=== PATIENT | male | born 1955 | race Caucasian/White ===

== ENCOUNTER 2021-08-30 17:49 | Inpatient (IN) ==
[2021-08-30 18:53] LABS: APPEARANCE,URINE HAZY (CLEAR); BACTERIA,URINE 2+ /HPF (NEGATIVE); CALCIUM OXALATE CRYSTALS,UR FEW /HPF (NEGATIVE); COLOR,URINE ORANGE (YELLOW); HYALINE CASTS, URINE FEW /LPF (NEGATIVE); MUCUS,URINE FEW /HPF (NEGATIVE); SQUAMOUS EPITHELIAL CELL,UR FEW /HPF (NEGATIVE); TRANSITIONAL EPI CELLS,URINE FEW /HPF (NEGATIVE)
[2021-08-30] MEDS ORDERED: ROCEPHIN VIAL 1 GRAM 1 G in NS 100 ML IV + SPIKE MINIBAG* 100 ML IV ONE (19:15)
[2021-08-30] MEDS ORDERED: ROCEPHIN VIAL 1 GRAM ONE (19:36)
[2021-08-30] MEDS ORDERED: NS 100 ML IV + SPIKE MINIBAG* 100 ML IV ONE (19:36)
[2021-08-30] MEDS ORDERED: NS 1000 ML 1,000 ML ONE ×2 (19:37→21:11)
--- NOTE | 2021-08-30 19:38 | DR.UPM ---
HPI Time Seen Time Seen by Provider: 08/30/21 19:06 PCP Primary Care Physician: GREGORY PARSON Complaint Chief Complaint Doctors Comments: LOWER ABDOMINAL PAIN WITH DYSURIA, FEVER, NAUSEA AND URINARY URGENCY Chief Complaint:: PT C/O URINARY URGENCY SINCE WEDNESDAY ASSOCIATED WITH DYSURIA, NAUSEA, AND FEVER UP TO 101. Self Treatment fo Chief Complaint: TAKEN AZO AND ASPIRIN COVID-19 Coronavirus risk:travel/contact w/high risk person: No Has patient experienced Coronavirus symptoms: No Source History Provided: Patient Mode of Arrival Mode of Arrival: Ambulatory Timing Onset of Chief Complaint: 08/30/21 PMH PMH Past Medical History: Yes Past Medical History: Dyslipidemia and Hypertension Past Surgical History: Yes Surgical History: Cholecystectomy and Ortho Surgery Past Surgical History Comment: LAP BAND Family History History of Family Medical Conditions: Yes Family Medical History: OR and Coronary Artery Disease Social History Does patient currently use any type of tobacco product: No Have you used tobacco products in the last 12 months: No Type of Tobacco Use: None Does any household member use tobacco: No Alcohol Use: None Do you use any recreational Drugs:: No Lives With: Family Lives Where: Home Travel Risk Coronavirus risk:travel/contact w/high risk person: No Has patient experienced Coronavirus symptoms: No Infectious screening In the last 2 months have you had wt loss of >10#?: NO Have you had fever, night sweats or hemotysis?: No Have you traveled outside the country in the last 6 months?: No Isolation: Standard PE Vital Signs Vitals: Temperature 98.4 F Pulse Rate 92 Respiratory Rate 18 Blood Pressure [Left Arm] 128/72 Blood Pressure 113/67 O2 Sat by Pulse Oximetry 90 ROR Labs Reviewed Result Diagrams: 08/30/21 19:23 08/30/21 19:23 Laboratory: WBC 21.0 X10^3/uL (3.6-10.0) H 08/30/21 19:23 RBC 4.47 X10^6/uL (4.7-6.0) L 08/30/21 19:23 Hgb 13.2 g/dL (13.5-18.0) L 08/30/21 19:23 Hct 37.9 % (42.0-54.0) L 08/30/21 19:23 MCV 84.7 fL (80.0-100.0) 08/30/21 19:23 MCH 29.5 pg (27.0-34.0) 08/30/21 19: MCHC 34.8 g/dL (33.0-35.0) 08/30/21 19: RDW 14.4 % (11.6-16.5) 08/30/21 19: Plt Count 232 X10^3/uL (150.0-450.0) 08/30/21: MPV 8.2 fL (7.4-11.0) 08/30/21 19: Neut % (Auto) 83.9 % (42.0-75.0) H 08/30/21: Lymph % (Auto) 4.5 % (21.0-51.0) L 08/30/21: [place] % (Auto) 11.4 % (0.0-13.0) 08/30/21 19: Eos % (Auto) 0.0 % (0.9-2.9) L 08/30/21: Baso % (Auto) 0.2 % (0.2-1.0) 08/30/21: Neut # (Auto) 17.6 x10^3/uL (2.2-4.8) H 08/30/21 19: Lymph # (Auto) 1.0 X10^3/uL (1.3-2.9) L 08/30/21 19: [place] # (Auto) 2.4 x10^3/uL (0.3-0.8) H 08/30/21 19: Eos # (Auto) 0.0 x10^3/uL (0.0-0.2) 08/30/21: Baso # (Auto) 0.0 X10^3/uL (0.0-0.1) 08/30/21: Absolute Nucleated RBC 0.0 /100WBC 08/30/21 19: Sodium 132 mmol/L (136-145) L 08/30/21: Corrected Sodium 133 mmol/L (136-145) L 08/30/21 19: Potassium 3.6 mmol/L (3.5-5.1) 08/30/21: Chloride 96 mmol/L (98-107) L 08/30/21 19:23 Carbon Dioxide 25.0 mmol/L (21-32) 08/30/21 19:23 BUN 24 mg/dL (7-18) H 08/30/21 19:23 Creatinine 2.22 mg/dL (0.70-1.30) H 08/30/21 19:23 Est GFR (MDRD) Af Amer 39 (>60) L 08/30/21 19:23 Est GFR (MDRD) Non-Af 32 (>60) L 08/30/21 19:23 Glucose 139 mg/dL (65-99) H 08/30/21 19:23 Calcium 8.6 mg/dL (8.5-10.1) 08/30/21 19:23 Corrected Calcium 9.2 mg/dL (8.5-10.1) 08/30/21 19:23 Total Bilirubin 0.80 mg/dL (0.2-1.0) 08/30/21 19:23 AST 18 Units/L (15-37) 08/30/21 19:23 ALT 24 Units/L (12-78) 08/30/21 19:23 Alkaline Phosphatase 52 Units/L (46-116) 08/30/21 19:23 Total Protein 7.6 g/dL (6.4-8.2) 08/30/21 19:23 Albumin 3.3 g/dL (3.4-5.0) L 08/30/21 19:23 Globulin 4.3 g/dL (2.5-4.5) 08/30/21 19:23 Albumin/Globulin Ratio 0.8 Ratio (1.1-2.1) L 08/30/21 19:23 Specimen Type Clean catch urine 08/30/21 18:21 Urine Color [place] (YELLOW) 08/30/21 18:21 Urine Appearance Hazy (CLEAR) 08/30/21 18:21 Urine pH Cancelled 08/30/21 18:21 Ur Specific [place] Cancelled 08/30/21 18:21 Urine Protein Cancelled 08/30/21 18:21 Urine Glucose (UA) Cancelled 08/30/21 18:21 Urine Ketones Cancelled 08/30/21 18:21 Urine Occult Blood Cancelled 08/30/21 18:21 Urine Nitrite Cancelled 08/30/21 18:21 Urine Bilirubin Cancelled 08/30/21 18:21 Urine Urobilinogen Cancelled 08/30/21 18:21 Ur Leukocyte Esterase Cancelled 08/30/21 18:21 Urine RBC 5-10 /HPF (0-3) A 08/30/21 18:21 Urine WBC Tntc /HPF (0-5) A 08/30/21 18:21 Ur Squamous Epith Cells Few /HPF (NEGATIVE) 08/30/21 18:21 Ur Transition Epith Cell Few /HPF (NEGATIVE) 08/30/21 18:21 Calcium Oxalate Crystal Few /HPF (NEGATIVE) 08/30/21 18:21 Urine Bacteria 2+ /HPF (NEGATIVE) 08/30/21 18:21 Hyaline Casts Few /LPF (NEGATIVE) 08/30/21 18:21 Urine Mucus Few /HPF (NEGATIVE) 08/30/21 18:21 Ur Culture Indicated? Yes/culture set up 08/30/21 18:21 SARS CoV-2 RNA Rapid ARSENIO Negative (NEGATIVE) 08/30/21 22:06 Opioid Opioid Risk Tool Age (Karl box if 16-45): No History of Preadolescent Sexual Abuse: No Total: 0 Total Score Risk Category: Low Risk Copyright: Payam LOUIE predicting aberrant behaviors
[2021-08-30 19:39] LABS: BASOPHILS % (AUTO) 0.2 % (0.2-1.0); HEMATOCRIT 37.9 % (42.0-54.0); HEMOGLOBIN 13.2 g/dL (13.5-18.0); LYMPHOCYTES % (AUTO) 4.5 % (21.0-51.0); MEAN CORPUSCULAR HEMOGLOBIN 29.5 pg (27.0-34.0); MEAN CORPUSCULAR HGB CONC 34.8 g/dL (33.0-35.0); MEAN CORPUSCULAR VOLUME 84.7 fL (80.0-100.0); MEAN PLATELET VOLUME 8.2 fL (7.4-11.0); MONOCYTES # (AUTO) 2.4 x10^3/uL (0.3-0.8); MONOCYTES % (AUTO) 11.4 % (0.0-13.0); NEUTROPHILS # (AUTO) 17.6 x10^3/uL (2.2-4.8); NEUTROPHILS % (AUTO) 83.9 % (42.0-75.0); PLATELET COUNT 232 X10^3/uL (150.0-450.0); RED BLOOD COUNT 4.47 X10^6/uL (4.7-6.0); RED CELL DISTRIBUTION WIDTH 14.4 % (11.6-16.5)
[2021-08-30] MEDS ORDERED: NS 1000 ML 1,000 ML IV ONE (19:48)
[2021-08-30 19:49] LABS: ALBUMIN 3.3 g/dL (3.4-5.0); CALCIUM 8.6 mg/dL (8.5-10.1); COR CA(FOR HYPOALB) 9.2 mg/dL (8.5-10.1); CREATININE 2.22 mg/dL (0.70-1.30); TOTAL PROTEIN 7.6 g/dL (6.4-8.2)
[2021-08-30] MEDS ORDERED: NS 1000 ML 1,000 ML IV SCH (20:00)
[2021-08-30] MEDS: NS 1000 ML 1,000 ML IV SCH (21:18)
--- NOTE | 2021-08-30 22:56 | CT ---
HISTORYabd painSTUDYABDOMEN/PELVIS W/O CONCOMPARISONNoneTECHNIQUEMultiple axial images of the abdomen and pelvis were obtained from the lung bases to the pubic symphysis without the administration of IV contrast. Dose reduction techniques including Automated Exposure Control (AEC) and adjustment of mA and kV were utilized.FINDINGSThe visualized portions of the lung bases are unremarkable . The liver, spleen, pancreas, kidneys, and adrenal glands are unremarkable in their CT appearance. Post cholecystectomy changes. There is a gastric lap band device present.. Mild bilateral perinephric stranding. No significant mesenteric lymphadenopathy or stranding can be observed. No free fluid or free air is seen within the abdomen. Normal appendix right lower quadrant. No bowel wall thickening or bowel dilatation is present. The colon is normal in caliber. There are scattered diverticula arising from the descending and sigmoid colon without evidence of acute diverticulitis.. The urinary bladder is grossly unremarkable. The bony structures are grossly intact. Small fat containing umbilical hernia.IMPRESSIONColonic diverticulosis without evidence of diverticulitis.Post cholecystectomy changes.No acute abdominal or pelvic pathology.Electronically signed by: Pino Torres (Aug 30, 2021 22:54:41)
[2021-08-30] MEDS ORDERED: LOVASTATIN 20 MG PO SCH (23:34)
[2021-08-31] MEDS ORDERED: TYLENOL 500 MG TAB EXTRA STRENGTH PO ONE (00:40)
[2021-08-31] MEDS: NEURONTIN CAP 400 MG PO SCH ×2 (01:08→20:12)
[2021-08-31] MEDS: TOPROL XL PO SCH ×2 (01:09→20:12)
[2021-08-31] MEDS: TYLENOL 500 MG TAB EXTRA STRENGTH PO PRN ×3 (01:10→20:25)
[2021-08-31] MEDS: NS 1000 ML 1,000 ML IV SCH ×3 (05:19→21:05)
[2021-08-31 06:09] LABS: BASOPHILS # (AUTO) 0.1 X10^3/uL (0.0-0.1); BASOPHILS % (AUTO) 0.6 % (0.2-1.0); EOSINOPHILS % (AUTO) 0.1 % (0.9-2.9); HEMATOCRIT 35.9 % (42.0-54.0); HEMOGLOBIN 12.2 g/dL (13.5-18.0); LYMPHOCYTES # (AUTO) 1.5 X10^3/uL (1.3-2.9); LYMPHOCYTES % (AUTO) 8.9 % (21.0-51.0); MEAN CORPUSCULAR HEMOGLOBIN 29.5 pg (27.0-34.0); MEAN CORPUSCULAR HGB CONC 34.1 g/dL (33.0-35.0); MEAN CORPUSCULAR VOLUME 86.4 fL (80.0-100.0); MEAN PLATELET VOLUME 8.9 fL (7.4-11.0); MONOCYTES # (AUTO) 2.2 x10^3/uL (0.3-0.8); MONOCYTES % (AUTO) 12.9 % (0.0-13.0); NEUTROPHILS # (AUTO) 13.1 x10^3/uL (2.2-4.8); NEUTROPHILS % (AUTO) 77.5 % (42.0-75.0); PLATELET COUNT 191 X10^3/uL (150.0-450.0); RED BLOOD COUNT 4.15 X10^6/uL (4.7-6.0); RED CELL DISTRIBUTION WIDTH 14.6 % (11.6-16.5); WHITE BLOOD COUNT 16.9 X10^3/uL (3.6-10.0)
[2021-08-31 06:27] LABS: ALBUMIN 2.8 g/dL (3.4-5.0); CALCIUM 8.2 mg/dL (8.5-10.1); CARBON DIOXIDE 26.9 mmol/L (21-32); COR CA(FOR HYPOALB) 9.2 mg/dL (8.5-10.1); CREATININE 2.17 mg/dL (0.70-1.30); TOTAL PROTEIN 6.8 g/dL (6.4-8.2)
[2021-08-31] MEDS ORDERED: NS 1000 ML 2,000 ML IV ONE (08:36)
[2021-08-31] MEDS ORDERED: TYGACIL 50 MG VIAL 100 MG in NS 100 ML IV 100 ML IV ONE (08:45)
[2021-08-31] MEDS ORDERED: FLOMAX ONE (08:59)
[2021-08-31] MEDS: HYZAAR 50/12.5 MG PO SCH (09:00)
[2021-08-31] MEDS ORDERED: PATIENT'S HOME MEDICATION (Hydrochlorothiazide 12.5 mg tablet) PO SCH (09:00)
[2021-08-31] MEDS: FLOMAX PO SCH (09:00)
[2021-08-31] MEDS ORDERED: PATIENT'S HOME MEDICATION (Losartan-Hydrochlorothiazide 100-25 mg tablet) PO SCH (09:00)
[2021-08-31] MEDS ORDERED: NS 100 ML IV + SPIKE MINIBAG* 100 ML IV ONE (09:00)
[2021-08-31] MEDS ORDERED: TYGACIL 50 MG VIAL IV ONE (09:00)
[2021-08-31] MEDS ORDERED: PATIENT'S HOME MEDICATION (Aspirin 81 mg Tablet) PO SCH (09:00)
[2021-08-31] MEDS: ASPIRIN EC 81 MG PO SCH (09:01)
[2021-08-31] MEDS: HYDROCHLOROTHIAZIDE 12.5 MG CAP PO SCH (09:01)
[2021-08-31] MEDS: MILK OF MAGNESIA PO SCH (09:02)
[2021-08-31 09:53] VITALS: BMI 44.2
[2021-08-31] MEDS: COLACE CAP 100 MG PO SCH (20:08)
[2021-08-31] MEDS: ROCEPHIN 1 GRAM IV PREMIX 1 G/50 ML IV.SOLN. IV SCH (20:09)
[2021-08-31] MEDS: TYGACIL 50 MG VIAL 50 MG in NS 100 ML IV 100 ML IV SCH (20:11)
[2021-08-31] MEDS: LIPITOR TAB 10 MG PO SCH (20:13)
[2021-09-01] MEDS: NS 1000 ML 1,000 ML IV SCH ×3 (05:00→17:45)
[2021-09-01 05:23] LABS: BASOPHILS # (AUTO) 0.1 X10^3/uL (0.0-0.1); BASOPHILS % (AUTO) 0.5 % (0.2-1.0); EOSINOPHILS # (AUTO) 0.1 x10^3/uL (0.0-0.2); EOSINOPHILS % (AUTO) 0.5 % (0.9-2.9); HEMATOCRIT 35.5 % (42.0-54.0); HEMOGLOBIN 12.2 g/dL (13.5-18.0); LYMPHOCYTES # (AUTO) 1.6 X10^3/uL (1.3-2.9); LYMPHOCYTES % (AUTO) 13.6 % (21.0-51.0); MEAN CORPUSCULAR HEMOGLOBIN 29.3 pg (27.0-34.0); MEAN CORPUSCULAR HGB CONC 34.3 g/dL (33.0-35.0); MEAN CORPUSCULAR VOLUME 85.5 fL (80.0-100.0); MEAN PLATELET VOLUME 9.3 fL (7.4-11.0); MONOCYTES # (AUTO) 1.5 x10^3/uL (0.3-0.8); MONOCYTES % (AUTO) 12.1 % (0.0-13.0); NEUTROPHILS # (AUTO) 8.9 x10^3/uL (2.2-4.8); NEUTROPHILS % (AUTO) 73.3 % (42.0-75.0); PLATELET COUNT 192 X10^3/uL (150.0-450.0); RED BLOOD COUNT 4.15 X10^6/uL (4.7-6.0); RED CELL DISTRIBUTION WIDTH 14.5 % (11.6-16.5); WHITE BLOOD COUNT 12.1 X10^3/uL (3.6-10.0)
[2021-09-01] MEDS: TYLENOL 500 MG TAB EXTRA STRENGTH PO PRN ×2 (05:35→17:46)
[2021-09-01 05:51] LABS: ALANINE AMINOTRANSFERASE 24 Units/L (12-78); ALBUMIN 2.7 g/dL (3.4-5.0); ALKALINE PHOSPHATASE 54 Units/L (46-116); ASPARTATE AMINO TRANSFERASE 20 Units/L (15-37); BLOOD UREA NITROGEN 19 mg/dL (7-18); CALCIUM 8.3 mg/dL (8.5-10.1); CARBON DIOXIDE 26.6 mmol/L (21-32); CHLORIDE 101 mmol/L (98-107); COR CA(FOR HYPOALB) 9.3 mg/dL (8.5-10.1); COR NA(FOR HYPERGLY) 136 mmol/L (136-145); CREATININE 1.21 mg/dL (0.70-1.30); SODIUM 136 mmol/L (136-145); eGFR NON BLACK RACES > 60 (>60)
[2021-09-01] MEDS: TYGACIL 50 MG VIAL 50 MG in NS 100 ML IV 100 ML IV SCH (06:09)
[2021-09-01] MEDS: HYDROCHLOROTHIAZIDE 12.5 MG CAP PO SCH (09:08)
[2021-09-01] MEDS: ASPIRIN EC 81 MG PO SCH (09:08)
[2021-09-01] MEDS: HYZAAR 50/12.5 MG PO SCH (09:09)
[2021-09-01] MEDS: FLOMAX PO SCH (09:09)
[2021-09-01] MEDS: MILK OF MAGNESIA PO SCH (09:09)
[2021-09-01] MEDS ORDERED: ZOFRAN INJ 4 MG VIAL IVP PRN (09:44)
--- NOTE | 2021-09-01 12:51 | PCM.PROG ---
Progress Note Progress Note for Day of Date of Exam: 09/01/21 Subjective Subjective: Pt is a 65 year old male admitted for acute prostatitis and acute renal failure(secondary to dehydration). This morning he reports feeling better. No acute events overnight. He is currently receiving IV antibiotics: Rocephin and Tygacil. Urine culture positive for Klebsiella pneu. Susceptible to Rocephin, will discontinue Tygacil. Labs: Wbc 12.1, Hgb 12.2, Plt 192, Na 136, K 3.7, Creatinine 2.17>1.21, Glucose 119. He is receiving IVF NS@175ml/h. Renal function has significantly improved, will decrease rate to 125ml/h. Leukocytosis trending down. Otherwise will continue with current treatment plan. Continue to monitor and follow up labs in the morning. Past Medical Family Social History Past Med/Fam/Surg Hx: No changes since H&P Allergies: Allergies No Known Drug Allergies Allergy (Verified 04/27/21 00:34) Review of Systems ROS: No change since H&P Vital Signs and I&O's Vital Signs: Temperature 98.3 F Pulse Rate [Right Brachial] 80 Pulse Rate 92 Respiratory Rate 20 Blood Pressure [Left Arm] 134/63 Blood Pressure 113/67 O2 Sat by Pulse Oximetry 95 Intake and Output: Intake & Output 08/29/21 08/30/21 08/31/21 09/01/21 23:59 23:59 23:59 23:59 Intake Total 2756 / 2756 1204 / 1204 Output Total 2900 / 2900 1050 / 1050 Balance -144 / -144 154 / 154 Physical Exam Oriented: Normal Eyes: Normal Ear: Normal Nose: Normal Respiratory: Normal Cardiovascular: Normal : Normal Auscultation: Bowel Sounds: Normal Palpation: Normal Tenderness: Normal Skin: Normal Musculoskeletal: Normal Psychiatric: Normal Mood Description: Calm Speech Pattern: Clear and Appropriate Laboratory and Diagnostics Result Diagrams: 09/01/21 03:45 09/01/21 03:45 Labs: 08/30/21 18:21 Urine,Clean Catch Urine Culture - Final Klebsiella Pneumoniae Laboratory WBC 12.1 X10^3/uL (3.6-10.0) H 09/01/21 03:45 RBC 4.15 X10^6/uL (4.7-6.0) L 09/01/21 03:45 Hgb 12.2 g/dL (13.5-18.0) L 09/01/21 03:45 Hct 35.5 % (42.0-54.0) L 09/01/21 03:45 MCV 85.5 fL (80.0-100.0) 09/01/21 03:45 MCH 29.3 pg (27.0-34.0) 09/01/21 03:45 MCHC 34.3 g/dL (33.0-35.0) 09/01/21 03:45 RDW 14.5 % (11.6-16.5) 09/01/21 03:45 Plt Count 192 X10^3/uL (150.0-450.0) 09/01/21 03:45 MPV 9.3 fL (7.4-11.0) 09/01/21 03:45 Neut % (Auto) 73.3 % (42.0-75.0) 09/01/21 03:45 Lymph % (Auto) 13.6 % (21.0-51.0) L 09/01/21 03:45 [place] % (Auto) 12.1 % (0.0-13.0) 09/01/21 03:45 Eos % (Auto) 0.5 % (0.9-2.9) L 09/01/21 03:45 Baso % (Auto) 0.5 % (0.2-1.0) 09/01/21 03:45 Neut # (Auto) 8.9 x10^3/uL (2.2-4.8) H 09/01/21 03:45 Lymph # (Auto) 1.6 X10^3/uL (1.3-2.9) 09/01/21 03:45 [place] # (Auto) 1.5 x10^3/uL (0.3-0.8) H 09/01/21 03:45 Eos # (Auto) 0.1 x10^3/uL (0.0-0.2) 09/01/21 03:45 Baso # (Auto) 0.1 X10^3/uL (0.0-0.1) 09/01/21 03:45 Absolute Nucleated RBC 0.0 /100WBC 09/01/21 03:45 Sodium 136 mmol/L (136-145) 09/01/21 03:45 Corrected Sodium 136 mmol/L (136-145) 09/01/21 03:45 Potassium 3.7 mmol/L (3.5-5.1) 09/01/21 03:45 Chloride 101 mmol/L (98-107) 09/01/21 03:45 Carbon Dioxide 26.6 mmol/L (21-32) 09/01/21 03:45 BUN 19 mg/dL (7-18) H 09/01/21 03:45 Creatinine 1.21 mg/dL (0.70-1.30) 09/01/21 03:45 Est GFR (MDRD) Af Amer > 60 (>60) 09/01/21 03:45 Est GFR (MDRD) Non-Af > 60 (>60) 09/01/21 03:45 Glucose 119 mg/dL (65-99) H 09/01/21 03:45 Calcium 8.3 mg/dL (8.5-10.1) L 09/01/21 03:45 Corrected Calcium 9.3 mg/dL (8.5-10.1) 09/01/21 03:45 Total Bilirubin 0.30 mg/dL (0.2-1.0) 09/01/21 03:45 AST 20 Units/L (15-37) 09/01/21 03:45 ALT 24 Units/L (12-78) 09/01/21 03:45 Alkaline Phosphatase 54 Units/L (46-116) 09/01/21 03:45 Total Protein 7.0 g/dL (6.4-8.2) 09/01/21 03:45 Albumin 2.7 g/dL (3.4-5.0) L 09/01/21 03:45 Globulin 4.3 g/dL (2.5-4.5) 09/01/21 03:45 Albumin/Globulin Ratio 0.6 Ratio (1.1-2.1) L 09/01/21 03:45 Specimen Type Clean catch urine 08/30/21 18:21 Urine Color [place] (YELLOW) 08/30/21 18:21 Urine Appearance Hazy (CLEAR) 08/30/21 18:21 Urine pH Cancelled 08/30/21 18:21 Ur Specific [place] Cancelled 08/30/21 18:21 Urine Protein Cancelled 08/30/21 18:21 Urine Glucose (UA) Cancelled 08/30/21 18:21 Urine Ketones Cancelled 08/30/21 18:21 Urine Occult Blood Cancelled 08/30/21 18:21 Urine Nitrite Cancelled 08/30/21 18:21 Urine Bilirubin Cancelled 08/30/21 18:21 Urine Urobilinogen Cancelled 08/30/21 18:21 Ur Leukocyte Esterase Cancelled 08/30/21 18:21 Urine RBC 5-10 /HPF (0-3) A 08/30/21 18:21 Urine WBC Tntc /HPF (0-5) A 08/30/21 18:21 Ur Squamous Epith Cells Few /HPF (NEGATIVE) 08/30/21 18:21 Ur Transition Epith Cell Few /HPF (NEGATIVE) 08/30/21 18:21 Calcium Oxalate Crystal Few /HPF (NEGATIVE) 08/30/21 18:21 Urine Bacteria 2+ /HPF (NEGATIVE) 08/30/21 18:21 Hyaline Casts Few /LPF (NEGATIVE) 08/30/21 18:21 Urine Mucus Few /HPF (NEGATIVE) 08/30/21 18:21 Ur Culture Indicated? Yes/culture set up 08/30/21 18:21 SARS CoV-2 RNA Rapid ARSENIO Negative (NEGATIVE) 08/30/21 22:06 Plan (1) Prostatitis: Status: Acute (2) Acute renal failure: Status: Acute
[2021-09-01] MEDS: LOVENOX INJ 40 MG SYR SC SCH (13:44)
[2021-09-01] MEDS: ROCEPHIN 1 GRAM IV PREMIX 1 G/50 ML IV.SOLN. IV SCH (21:51)
[2021-09-01] MEDS: TOPROL XL PO SCH (21:54)
[2021-09-01] MEDS: LIPITOR TAB 10 MG PO SCH (21:54)
[2021-09-01] MEDS: COLACE CAP 100 MG PO SCH (21:55)
[2021-09-01] MEDS: NEURONTIN CAP 400 MG PO SCH (21:55)
[2021-09-02] MEDS: NS 1000 ML 1,000 ML IV SCH ×3 (01:47→10:16)
[2021-09-02 06:44] LABS: BASOPHILS % (AUTO) 0.6 % (0.2-1.0); EOSINOPHILS # (AUTO) 0.2 x10^3/uL (0.0-0.2); EOSINOPHILS % (AUTO) 2.3 % (0.9-2.9); HEMATOCRIT 35.2 % (42.0-54.0); HEMOGLOBIN 11.9 g/dL (13.5-18.0); LYMPHOCYTES # (AUTO) 2.2 X10^3/uL (1.3-2.9); MEAN CORPUSCULAR HEMOGLOBIN 29.3 pg (27.0-34.0); MEAN CORPUSCULAR HGB CONC 33.9 g/dL (33.0-35.0); MEAN CORPUSCULAR VOLUME 86.5 fL (80.0-100.0); MONOCYTES % (AUTO) 11.4 % (0.0-13.0); NEUTROPHILS # (AUTO) 5.4 x10^3/uL (2.2-4.8); NEUTROPHILS % (AUTO) 60.7 % (42.0-75.0); PLATELET COUNT 214 X10^3/uL (150.0-450.0); RED BLOOD COUNT 4.07 X10^6/uL (4.7-6.0); RED CELL DISTRIBUTION WIDTH 14.6 % (11.6-16.5); WHITE BLOOD COUNT 8.8 X10^3/uL (3.6-10.0)
[2021-09-02 07:00] LABS: ALANINE AMINOTRANSFERASE 52 Units/L (12-78); ALBUMIN 2.6 g/dL (3.4-5.0); ALKALINE PHOSPHATASE 56 Units/L (46-116); ASPARTATE AMINO TRANSFERASE 40 Units/L (15-37); BLOOD UREA NITROGEN 16 mg/dL (7-18); CALCIUM 8.6 mg/dL (8.5-10.1); CARBON DIOXIDE 26.2 mmol/L (21-32); CHLORIDE 104 mmol/L (98-107); COR CA(FOR HYPOALB) 9.7 mg/dL (8.5-10.1); COR NA(FOR HYPERGLY) 137 mmol/L (136-145); SODIUM 137 mmol/L (136-145); TOTAL PROTEIN 6.7 g/dL (6.4-8.2); eGFR NON BLACK RACES > 60 (>60)
[2021-09-02 08:25] VITALS: BP 181/87
[2021-09-02] MEDS: ASPIRIN EC 81 MG PO SCH (08:44)
[2021-09-02] MEDS: FLOMAX PO SCH (08:44)
[2021-09-02] MEDS: HYZAAR 50/12.5 MG PO SCH (08:45)
[2021-09-02] MEDS: HYDROCHLOROTHIAZIDE 12.5 MG CAP PO SCH (08:45)
[2021-09-02] MEDS: LOVENOX INJ 40 MG SYR SC SCH ×2 (08:46→08:49)
[2021-09-02] MEDS: MILK OF MAGNESIA PO SCH (08:47)
--- NOTE | 2021-09-02 10:07 | W.DIS.FURT ---
Summary of Discharge Discharge Summary of Date Date of Exam: 09/02/21 Admission Date Date of Admission: 08/30/21 Admission Diagnosis Hospital Course: Pt is a 65 year old male admitted for acute prostatitis and acute renal failure(secondary to dehydration). Urine culture positive for Klebsiella pneu. Susceptible to Rocephin. Pt received IV antibiotics: Rocephin and IVF for acure renal failure. He responded well to treatments. Renal function improved back to normal limits, leukocytosis trended down. Labs: Wbc 8.8, Hgb 11.9, Plt 214, Na 137, K 3.9, Creatinine 1.00, Glucose 112. Pt was discharged home with ciprofloxacin x 7 days with instructions to complete course. He reports difficulty urinating prior to admission that may be related to BPH, he was started on flomax here, will prescribe and he will need to follow up with pcp. Pt discharged in stable condition. Instructed to follow up with pcp in 3-5 days. Vital Signs: Vital Signs (72 hours) 08/30/21 18:02 08/30/21 23:12 08/30/21 23:34 Temperature 98.4 F 97.8 F 98.4 F Pulse Rate 92 H Pulse Rate [Right Brachial] 91 H 97 H Respiratory Rate 18 20 23 Blood Pressure 113/67 Blood Pressure [Left Arm] 119/58 119/67 Blood Pressure [Right Arm] O2 Sat by Pulse Oximetry 90 L 94 L 98 08/31/21 00:00 08/31/21 01:10 08/31/21 02:10 Temperature 98.4 F Pulse Rate Pulse Rate [Right Brachial] 97 H Respiratory Rate 23 20 20 Blood Pressure Blood Pressure [Left Arm] 119/67 Blood Pressure [Right Arm] O2 Sat by Pulse Oximetry 98 08/31/21 04:00 08/31/21 08:00 08/31/21 11:45 Temperature 98.6 F 99.3 F Pulse Rate Pulse Rate [Right Brachial] 104 H 107 H Respiratory Rate 23 24 18 Blood Pressure Blood Pressure [Left Arm] 128/59 122/55 Blood Pressure [Right Arm] O2 Sat by Pulse Oximetry 91 L 93 L 08/31/21 12:00 08/31/21 12:45 08/31/21 16:00 Temperature 100.2 F H 98.2 F Pulse Rate Pulse Rate [Right Brachial] 97 H 86 Respiratory Rate 20 20 20 Blood Pressure Blood Pressure [Left Arm] 110/67 105/57 Blood Pressure [Right Arm] O2 Sat by Pulse Oximetry 90 L 92 L 08/31/21 20:00 08/31/21 20:25 08/31/21 21:25 Temperature 100.2 F H Pulse Rate Pulse Rate [Right Brachial] 103 H Respiratory Rate 23 20 20 Blood Pressure Blood Pressure [Left Arm] 102/58 Blood Pressure [Right Arm] O2 Sat by Pulse Oximetry 89 L 09/01/21 00:00 09/01/21 03:47 09/01/21 05:35 Temperature 98.5 F 98.8 F Pulse Rate Pulse Rate [Right Brachial] 96 H 96 H Respiratory Rate 23 23 20 Blood Pressure Blood Pressure [Left Arm] 129/73 137/79 Blood Pressure [Right Arm] O2 Sat by Pulse Oximetry 90 L 89 L 09/01/21 06:34 09/01/21 08:00 09/01/21 12:00 Temperature 98.3 F 98.7 F Pulse Rate Pulse Rate [Right Brachial] 80 80 Respiratory Rate 20 20 20 Blood Pressure Blood Pressure [Left Arm] 134/63 124/65 Blood Pressure [Right Arm] O2 Sat by Pulse Oximetry 95 95 09/01/21 16:00 09/01/21 17:46 09/01/21 18:46 Temperature 98.4 F Pulse Rate Pulse Rate [Right Brachial] 92 H Respiratory Rate 20 20 18 Blood Pressure Blood Pressure [Left Arm] 117/58 Blood Pressure [Right Arm] O2 Sat by Pulse Oximetry 94 L 09/01/21 20:00 09/01/21 23:58 09/02/21 04:00 Temperature 98.6 F 97.7 F 98.1 F Pulse Rate Pulse Rate [Right Brachial] 98 H 84 87 Respiratory Rate 20 18 20 Blood Pressure Blood Pressure [Left Arm] 182/79 143/84 119/71 Blood Pressure [Right Arm] O2 Sat by Pulse Oximetry 93 L 93 L 93 L 09/02/21 08:00 Temperature 97.2 F L Pulse Rate Pulse Rate [Right Brachial] 80 Respiratory Rate 20 Blood Pressure Blood Pressure [Left Arm] Blood Pressure [Right Arm] 181/87 O2 Sat by Pulse Oximetry 92 L Labs: Laboratory Last Values WBC 8.8 X10^3/uL (3.6-10.0) 09/02/21 05:23 RBC 4.07 X10^6/uL (4.7-6.0) L 09/02/21 05:23 Hgb 11.9 g/dL (13.5-18.0) L 09/02/21 05:23 Hct 35.2 % (42.0-54.0) L 09/02/21 05:23 MCV 86.5 fL (80.0-100.0) 09/02/21 05:23 MCH 29.3 pg (27.0-34.0) 09/02/21 05:23 MCHC 33.9 g/dL (33.0-35.0) 09/02/21 05:23 RDW 14.6 % (11.6-16.5) 09/02/21 05:23 Plt Count 214 X10^3/uL (150.0-450.0) 09/02/21 05:23 MPV 9.0 fL (7.4-11.0) 09/02/21 05:23 Neut % (Auto) 60.7 % (42.0-75.0) 09/02/21 05:23 Lymph % (Auto) 25.0 % (21.0-51.0) 09/02/21 05:23 [place] % (Auto) 11.4 % (0.0-13.0) 09/02/21 05:23 Eos % (Auto) 2.3 % (0.9-2.9) 09/02/21 05:23 Baso % (Auto) 0.6 % (0.2-1.0) 09/02/21 05:23 Neut # (Auto) 5.4 x10^3/uL (2.2-4.8) H 09/02/21 05:23 Lymph # (Auto) 2.2 X10^3/uL (1.3-2.9) 09/02/21 05:23 [place] # (Auto) 1.0 x10^3/uL (0.3-0.8) H 09/02/21 05:23 Eos # (Auto) 0.2 x10^3/uL (0.0-0.2) 09/02/21 05:23 Baso # (Auto) 0.0 X10^3/uL (0.0-0.1) 09/02/21 05:23 Absolute Nucleated RBC 0.1 /100WBC 09/02/21 05:23 Sodium 137 mmol/L (136-145) 09/02/21 05:23 Corrected Sodium 137 mmol/L (136-145) 09/02/21 05:23 Potassium 3.9 mmol/L (3.5-5.1) 09/02/21 05:23 Chloride 104 mmol/L (98-107) 09/02/21 05:23 Carbon Dioxide 26.2 mmol/L (21-32) 09/02/21 05:23 BUN 16 mg/dL (7-18) 09/02/21 05:23 Creatinine 1.00 mg/dL (0.70-1.30) 09/02/21 05:23 Est GFR (MDRD) Af Amer > 60 (>60) 09/02/21 05:23 Est GFR (MDRD) Non-Af > 60 (>60) 09/02/21 05:23 Glucose 112 mg/dL (65-99) H 09/02/21 05:23 Calcium 8.6 mg/dL (8.5-10.1) 09/02/21 05:23 Corrected Calcium 9.7 mg/dL (8.5-10.1) 09/02/21 05:23 Total Bilirubin 0.30 mg/dL (0.2-1.0) 09/02/21 05:23 AST 40 Units/L (15-37) H 09/02/21 05:23 ALT 52 Units/L (12-78) 09/02/21 05:23 Alkaline Phosphatase 56 Units/L (46-116) 09/02/21 05:23 Total Protein 6.7 g/dL (6.4-8.2) 09/02/21 05:23 Albumin 2.6 g/dL (3.4-5.0) L 09/02/21 05:23 Globulin 4.1 g/dL (2.5-4.5) 09/02/21 05:23 Albumin/Globulin Ratio 0.6 Ratio (1.1-2.1) L 09/02/21 05:23 Specimen Type Clean catch urine 08/30/21 18:21 Urine Color [place] (YELLOW) 08/30/21 18:21 Urine Appearance Hazy (CLEAR) 10/02/21 18:21 Urine pH Cancelled 08/30/21 18:21 Ur Specific [place] Cancelled 08/30/21 18:21 Urine Protein Cancelled 08/30/21 18:21 Urine Glucose (UA) Cancelled 08/30/21 18:21 Urine Ketones Cancelled 08/30/21 18:21 Urine Occult Blood Cancelled 08/30/21 18:21 Urine Nitrite Cancelled 08/30/21 18:21 Urine Bilirubin Cancelled 08/30/21 18:21 Urine Urobilinogen Cancelled 08/30/21 18:21 Ur Leukocyte Esterase Cancelled 08/30/21 18:21 Urine RBC 5-10 /HPF (0-3) A 08/30/21 18:21 Urine WBC Tntc /HPF (0-5) A 08/30/21 18:21 Ur Squamous Epith Cells Few /HPF (NEGATIVE) 08/30/21 18:21 Ur Transition Epith Cell Few /HPF (NEGATIVE) 08/30/21 18:21 Calcium Oxalate Crystal Few /HPF (NEGATIVE) 08/30/21 18:21 Urine Bacteria 2+ /HPF (NEGATIVE) 08/30/21 18:21 Hyaline Casts Few /LPF (NEGATIVE) 08/30/21 18:21 Urine Mucus Few /HPF (NEGATIVE) 08/30/21 18:21 Ur Culture Indicated? Yes/culture set up 08/30/21 18:21 SARS CoV-2 RNA Rapid ARSENIO Negative (NEGATIVE) 08/30/21 22:06 Reason For Visit: ACUTE PYELONEPHRITIS, DEHYDRATION, RENAL INSUFFICI Discharge Date Discharge Date: 09/02/21 Discharge Diagnosis All Active Problems (Updated 09/01/21 @ 12:57 by Jesus Bryson) Acute renal failure (Acute) Prostatitis (Acute) Chest pain (Acute) Bronchitis (Acute) Plan of Treatment: Continue with present treatment and follow up plan. Pt is to keep follow up appointment as instructed and take medications as ordered. Discharge Medications Discharge Medications: No Known Drug Allergies Allergy (Verified 04/27/21 00:34) CONTINUE taking the following medications aspirin 81 mg PO QAM 08/30/21 [History] gabapentin 400 mg PO QHS 08/30/21 [History] hydrochlorothiazide 12.5 mg PO QAM 08/30/21 [History] losartan-hydrochlorothiazide 1 tab PO QAM 08/30/21 [History] lovastatin 20 mg PO QHS 08/30/21 [History] metoprolol succinate 50 mg PO QHS 08/30/21 [History] New Prescriptions ciprofloxacin HCl [Cipro] 500 mg PO BID 7 Days #14 tab 09/02/21 [Rx] tamsulosin 0.4 mg PO DAILY 30 Days #30 cap 09/02/21 [Rx] Follow up and Referral Follow Up: 1 Week Discharge Disposition Discharge Disposition: Home Discharge Condition: Stable Discharge Plan Discharge Plan Hospital Course: Pt is a 65 year old male admitted for acute prostatitis and acute renal failure(secondary to dehydration). Urine culture positive for Klebsiella pneu. Susceptible to Rocephin. Pt received IV antibiotics: Rocephin and IVF for acure renal failure. He responded well to treatments. Renal function improved back to normal limits, leukocytosis trended down. Labs: Wbc 8.8, Hgb 11.9, Plt 214, Na 137, K 3.9, Creatinine 1.00, Glucose 112. Pt was discharged home with ciprofloxacin x 7 days with instructions to complete course. He reports difficulty urinating prior to admission that may be related to BPH, he was started on flomax here, will prescribe and he will need to follow up with pcp. Pt discharged in stable condition. Instructed to follow up with pcp in 3-5 days. Condition: Stable Health Concerns: Post Hospitalization: new medications and changes needed to prevent readmission or further decline. Pt educated and given instructions on all concerns. Plan of Treatment: Continue with present treatment and follow up plan. Pt is to keep follow up appointment as instructed and take medications as ordered. Prescriptions: New tamsulosin 0.4 mg Capsule 0.4 mg PO DAILY 30 Days Qty: 30 RF: 0 ciprofloxacin HCl [Cipro] 500 mg tablet 500 mg PO BID 7 Days Qty: 14 RF: 0 Continued metoprolol succinate 50 mg tablet extended release 24 hr 50 mg PO QHS RF: 0 gabapentin 400 mg capsule 400 mg PO QHS RF: 0 losartan-hydrochlorothiazide 100-25 mg tablet 1 tab PO QAM RF: 0 hydrochlorothiazide 12.5 mg tablet 12.5 mg PO QAM RF: 0 aspirin 81 mg Tablet 81 mg PO QAM RF: 0 lovastatin 20 mg Tablet 20 mg PO QHS RF: 0 Orders to Discharge Patient Discharge Orders: Discharge (Routine); Ordered 09/02/21 Ordered By: Jesus Bryson Follow ups/Referrals Follow ups/Referrals: ELDER PARSON [Primary Care Provider] - 1 WEEK
== END 2021-09-02 11:35 | disposition home or self-care (01) | DRG 728 ==
LOC: ER 18:01 → MED/SURG 23:06
PROVIDERS: ADMIT Obstetrics & Gynecology Obstetrics; ATTEND Family Medicine
DX: E78.2 Mixed hyperlipidemia; E86.0 Dehydration; N17.8 Other acute kidney failure; N41.8 Other inflammatory diseases of prostate; N39.0 Urinary tract infection, site not specified; Z20.822 Contact with and (suspected) exposure to COVID-19; B96.1 Klebsiella pneumoniae [K. pneumoniae] as the cause of diseases classified elsewhere; I10 Essential (primary) hypertension; N10 Acute pyelonephritis